=== PATIENT | male | born 1975 | race Caucasian/White ===

== ENCOUNTER 2019-03-18 21:10 | Emergency (ER) | payer OTHER ==
[~2019-03-18] VITALS: Ht 175.3 cm; Wt 129.7 kg
[2019-03-18 21:15] VITALS: Ht 175.3 cm; Wt 129.7 kg
[2019-03-19 00:23] LABS: microscopic required? YES; urine erythrocyte 1+ (NEGATIVE)
[2019-03-19 00:27] LABS: BASOPHIL % 0.2 % (0-2); PLATELET COUNT 222 x10^3mcL (130-400); RED CELL DISTRIBUTION WIDTH 13.9 % (11.5-14.5)
[2019-03-19 00:45] LABS: CALCIUM 8.9 mg/dL (8.5-10.1); CARBON DIOXIDE 28.6 mmol/L (21-32); CHLORIDE SERUM 100 mmol/L (98-107); CREATININE SERUM 0.9 mg/dL (0.7-1.3); GFR1 > 60 mL/min; GLUCOSE SERUM 118 mg/dL (74-106); POTASSIUM SERUM 3.9 mmol/L (3.5-5.1); SODIUM SERUM 138 mmol/L (136-145)
[2019-03-19 00:50] LABS: ALBUMIN 3.6 g/dL (3.4-5.0); ALKALINE PHOSPHATASE 134 U/L (46-116); ALT/SGPT 43 U/L (16-63); AST/SGOT 22 U/L (15-37); BILIRUBIN TOTAL 0.4 mg/dL (0.20-1.00)
[2019-03-19 02:21] VITALS: BP 136/76
== END 2019-03-19 02:21 | disposition home or self-care (01) ==
LOC: ED 21:10
PROVIDERS: Emergency Medicine
DX: L02.416 Cutaneous abscess of left lower limb (principal)
CPT/HCPCS: J1885; J3490; J7030